=== PATIENT | female | born 1990 | race Caucasian/White ===

== ENCOUNTER 2018-05-21 15:45 | Emergency (ER) | payer SELFPAY ==
[2018-05-21 15:46] VITALS: BP 141/77; PULSE 101; RESP 16; TEMP 36.8; O2SAT 94; BMI 26.6
--- NOTE | 2018-05-21 16:00 | RAD_ITS ---
STUDY: X-RAY CHEST REASON FOR EXAM: Female, 27 years old. Fever and vomiting. TECHNIQUE: PA and lateral chest. COMPARISON: 09/10/2012. FINDINGS: The lungs are clear and expanded. There is no demonstrated pleural abnormality. Normal size heart. Normal mediastinum and catarino. Normal visualized pulmonary arteries. Normal visualized aortic arch and descending thoracic aorta. Normal visualized thoracic spine. Old right rib fractures. There is no demonstrated abnormality of the visualized soft tissue structures of the upper abdomen. RAD/Chest PA and Lateral IMPRESSION: No acute process. Electronically Signed: Candy Navarro MD at 16:34 EST Tel , Service support ,
[2018-05-21 17:32] LABS: Mucous, Urine 0 SEEN /hpf (<or=2+)
[2018-05-21 17:35] LABS: Color, Urine Yellow (Yellow); Glucose, Dipstick Normal (Normal); Ketone-Dipstick 5 mg/dl (Negative); Leukocyte Esterase-Dipstick 500 /ul (Negative); Nitrite-Dipstick Positive (Negative); Occult Blood-Urine 150 /ul (Negative); Protein-Dipstick 30 mg/dl (Negative); Urine Bilirubin Dipstick Negative (Negative); Urine Clarity Cloudy (Clear); Urine Urobilinogen 1 mg/dl (Normal)
[2018-05-21 17:55] LABS: Bacteria 2+ /hpf (None Seen); Red Blood Cells-Urine 0-5 SEEN /hpf (0-5); Squamous Epithelial Cells - UA 0-5 SEEN /hpf (5-10); White Blood Cells >100 SEEN /hpf (0-5)
[2018-05-21 18:24] VITALS: BP 124/77; PULSE 71; RESP 16; O2SAT 98
--- NOTE | 2018-05-21 18:49 | ED.VISSUMM ---
- ER Visit Summary Date of Service: 05/21/18 Chief Complaint: Fever to 102.5. And urine smells History of Present Illness: The patient is a 27 F who presents with frequency, dark urine with odor and temperature documented 102.5 with chills and sweats. She also complains of left flank pain. She does report lower abdominal pain with nausea as well. She denies headache. She denies ocular, visual auditory symptoms. She denies sore throat or change in voice. She denies cough, shortness of breath or difficulty breathing. Denies chest pain. Please read written note for complete detail. Physical Examination: Vital signs are remarkable for a heart rate of 101 and blood pressure 141/77. . HEENT exam is unremarkable. Heart is regular without murmur, gallop or rub. S1 and S2 are normal. Lungs are clear to auscultation with good movement of air bilaterally. Abdomen is remarkable suprapubic discomfort. Bowel sounds are present normal. There is no guarding or rebound tenderness. There is left CVA tenderness noted. Test Results: Urine is positive for infection. Emergency Department Course and Treatment: We will obtain UA since her symptoms are urologic. If negative will entertain other possibilities. Treatment Plan: Antibiotics for 7 days, ciprofloxacin 500 mg twice daily Disposition: Discharge to home in stable condition Impression: Acute pyelonephritis This note was generated with [employer] dictation software. It may contain incorrect words, spelling, and punctuation that were not noted in review of the chart prior to signing ED Disposition - Plan for ED Patient: Disposition: Home or Assisted Living Chief Complaint: Fever Instructions: ED Kidney Infec Female Prescriptions: Ciprofloxacin [Cipro] 500 mg PO BID #14 tab Referrals: Care Physician,No Primary [Primary Care Provider] - Karin Cabezas [NON-STAFF] - 3-5 Days if not improving
[2018-05-21 19:05] VITALS: BP 111/69; PULSE 85; RESP 18; O2SAT 99
[2018-05-21] MEDS: Ciprofloxacin 250 MG Tablet 500 MG PO (19:05)
--- NOTE | 2018-05-21 19:06 | ED.VISSUMM ---
- ER Visit Summary Date of Service: 05/21/18 Chief Complaint: [] History of Present Illness: The patient is a 27 F [] Physical Examination: [] Test Results: [] Emergency Department Course and Treatment: [] Treatment Plan: [] Disposition: [] Impression: [] This note was generated with [employer] dictation software. It may contain incorrect words, spelling, and punctuation that were not noted in review of the chart prior to signing ED Disposition - Plan for ED Patient: Disposition: Home or Assisted Living Chief Complaint: Fever Instructions: ED Kidney Infec Female Prescriptions: Ondansetron [Zofran Odt] 4 mg PO Q8H PRN PRN #10 tab PRN Reason: Nausea Ciprofloxacin [Cipro] 500 mg PO BID #14 tab Referrals: Karin Cabezas [NON-STAFF] - 3-5 Days if not improving Care Physician,No Primary [Primary Care Provider] -
== END 2018-05-21 19:09 | disposition home or self-care (01) ==
PROVIDERS: Emergency Provider Emergency Medicine
DX: N10 Acute pyelonephritis (principal); Z72.0 Tobacco use
CPT/HCPCS: 71046; 81001; 99283

== ENCOUNTER → 2019-11-21 11:23 | Outpatient (CLI) | payer OTHER, SELFPAY ==
[2015-02-24 10:50] VITALS: BMI 29.8
[2019-11-21 11:28] LABS: Mucous, Urine 0 SEEN /hpf (<or=2+)
[2019-11-21 15:37] LABS: Color, Urine Yellow (Yellow); Glucose, Dipstick Normal (Normal); Ketone-Dipstick Negative (Negative); Leukocyte Esterase-Dipstick 25 /ul (Negative); Nitrite-Dipstick Positive (Negative); Occult Blood-Urine 25 /ul (Negative); Protein-Dipstick Negative (Negative); Urine Bilirubin Dipstick Negative (Negative); Urine Clarity Cloudy (Clear); Urine Urobilinogen Normal (Normal)
[2019-11-21 15:44] LABS: Bacteria 4+ /hpf (None Seen); Squamous Epithelial Cells - UA 0-5 SEEN /hpf (5-10)
[2019-11-21 15:45] LABS: Red Blood Cells-Urine 0-5 SEEN /hpf (0-5); White Blood Cells 10-25 SEEN /hpf (0-5)
[2019-11-21 16:04] LABS: Thyroid Stim Hormone (TSH) 1.71 uIU/mL (0.358-3.74)
== END ==
PROVIDERS: PCP Family Medicine; Referring Provider Family Medicine; Visit Provider Family Medicine
DX: Z00.00 Encounter for general adult medical examination without abnormal findings (principal); R31.9 Hematuria, unspecified; R82.81 Pyuria
CPT/HCPCS: 36415; 81001; 84443; 87086; 87088; 87186

== ENCOUNTER → 2019-12-03 13:31 | Outpatient (CLI) | payer OTHER, SELFPAY ==
--- NOTE | 2019-12-03 13:36 | RAD_ITS ---
STUDY: X-RAY - RIGHT FOOT CLINICAL: Female, 29 years old. Pain. TECHNIQUE: 3 view(s) of the foot. COMPARISON: Comparison is made with prior examination dated May 25, 2014. FINDINGS: There is a small plantar calcaneal spur. Normal visualized subtalar, talonavicular, calcaneocuboid, tarsal and tarsometatarsal articulations. Normal metatarsi. Normal metatarsophalangeal joint of the great toe. Normal tibial and fibular sesamoid bones. Normal interphalangeal joint of the great toe. Normal phalanges of the great toe. Normal second through fifth metatarsophalangeal joints. Normal interphalangeal joints and phalanges of the lesser toes. The soft tissue structures are unremarkable. RAD/Foot min 3 Views IMPRESSION: Small plantar spur. Electronically Signed: Sandro De Luna, at 15:38 EDT , Service support ,
== END ==
PROVIDERS: PCP Family Medicine; Referring Provider Family Medicine; Visit Provider Family Medicine
DX: M77.31 Calcaneal spur, right foot (principal); G89.29 Other chronic pain
CPT/HCPCS: 73630

== ENCOUNTER → 2019-12-26 13:20 | Outpatient (CLI) | payer OTHER, SELFPAY ==
[2019-12-26 15:18] LABS: Progesterone Level 0.46 ng/mL (See Comment)
[2019-12-26 15:23] LABS: Prolactin 9.1 ng/mL; Thyroid Stim Hormone (TSH) 0.92 uIU/mL (0.358-3.74)
[2019-12-26 17:35] LABS: Chlamydia Trachomatis by PCR Negative (Negative); Neisserai gonorrhoeae by PCR Negative (Negative); Probe Check PASS; Sample Adequacy Control PASS; Specimen Processing Control PASS
[2020-01-03 05:44] LABS: HPV APTIMA, High Risk Negative (Negative); HPV Reflexed? NOT INDICATED
== END ==
PROVIDERS: PCP Family Medicine; Visit Provider Obstetrics & Gynecology
DX: Z12.4 Encounter for screening for malignant neoplasm of cervix (principal); Z11.3 Encounter for screening for infections with a predominantly sexual mode of transmission; N94.6 Dysmenorrhea, unspecified; N92.6 Irregular menstruation, unspecified
CPT/HCPCS: 36415; 84144; 84146; 84443; 87491; 87591; 88175; G0145

== ENCOUNTER 2020-02-06 20:24 | Emergency (ER) | payer OTHER, SELFPAY ==
[2020-02-06 20:26] VITALS: BP 135/97; PULSE 93; PULSE 97; RESP 16; RESP 17; TEMP 36.6; O2SAT 98; BMI 28.1
--- NOTE | 2020-02-06 21:43 | ED.DCSUM_ITS ---
History of Present Illness Chief Complaint: Laceration Informant: Patient Onset: Today Current Severity: Mild Maximum Severity: Mild Narrative: Patient presents with scalp laceration. 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 When she stood up suddenly she struck her head against the corner of a cabinet. She has a 2 cm laceration over the frontal scalp. She does report tetanus is up-to-date. She denies headache or neck pain. Past Medical History - Allergies and Home Meds Allergies/Adverse Reactions: Allergies No Known Allergies Allergy (Verified 02/06/20 20:24) Primary Care Physician: Shahriar Green MD [Primary Care Provider] - Prior records reviewed: Yes Past Medical History: None Smoking Status: Never smoker Review of Systems General: Denies: Chills, Fever Eyes: Denies: Visual changes - bilaterally ENT: Denies: Bilateral ear pain Cardiovascular: Denies: Chest pain Respiratory: Denies: Dyspnea, Cough Gastrointestinal: Denies: Abdominal pain, Nausea, Vomiting, Diarrhea Musculoskeletal: Denies: Extremity Pain Skin: Reports: Wounds Neurological: Denies: Headache Hematologic: Denies: Easy bruising, Easy bleeding Physical Exam Vital Signs/Narrative: Vital Signs Temp Pulse Resp BP Pulse Ox 02/06/20 20:26 97.8 F 97 16 135/97 H 98 Inital Vital Signs reviewed: Yes General: Well nourished, Well developed Head: - - 2 cm linear laceration frontal scalp. ENT: Moist mucous membranes Neck: Supple, - - No C-spine tenderness. Cardiovascular: Regular rate, Regular rhythm Respiratory: No distress Skin: - - Laceration as above Neurological: Alert, Oriented x3 Psychological: Normal affect Diagnostic/Tx/Re-eval - Medical Decision Making 2 cc 1% lidocaine are used locally for anesthesia. Wound is cleansed and closed with 2 simple interrupted sutures of 4-0 nylon. Patient will follow-up with [facility] or employee health. Procedures - Lacerations No standard instances Length: 0.79 in Laceration repair: Lidocaine, Local Number of Sutures/[place]: 2 Suture Information: Ethilon, Simple, 4-0 ED Disposition - Plan for ED Patient: Disposition: Home or Assisted Living Diagnosis: Scalp laceration Instructions: ED Laceration Scalp Sutures or [place] Referrals: Corporate,[facility] [GROUP OF PHYSICIANS] - 5 Days for suture removal
[2020-02-06 21:53] VITALS: BP 133/78; PULSE 88; RESP 16; O2SAT 99
== END 2020-02-06 21:56 | disposition home or self-care (01) ==
PROVIDERS: Emergency Provider Emergency Medicine; PCP Family Medicine
DX: S01.01XA Laceration without foreign body of scalp, initial encounter (principal); W22.8XXA Striking against or struck by other objects, initial encounter
CPT/HCPCS: 12001; 99283

== ENCOUNTER 2020-09-04 12:46 | Emergency (ER) | payer OTHER, SELFPAY ==
[2020-09-04 12:47] VITALS: BP 133/93; PULSE 84; RESP 17; TEMP 34.9; O2SAT 98; BMI 28.1
--- NOTE | 2020-09-04 13:50 | ED.VIS.GEN ---
History of Present Illness Chief Complaint: Complaint Informant: Patient Onset: Days Context: Gradual Onset Timing: Continuous Current Severity: Moderate Maximum Severity: Moderate Narrative: The patient is a 29-year-old female who is otherwise healthy the presents to the emergency department with dysuria. Patient states that going on for about 2 or 3 days. She states that she had low-grade fevers. She is had increasing urinary frequency and urgency. She states that she is had a lot of cramping in her pelvis. She does have history of prior urinary tract infection and states this feels similar. She is otherwise been in her normal state of health. Prior similar symptoms: Yes Recent Illness/Hospitalization: No Past Medical History - Allergies and Home Meds Allergies/Adverse Reactions: Allergies No Known Allergies Allergy (Verified 09/04/20 12:49) Primary Care Physician: Shahriar Green MD [Primary Care Provider] - Prior records reviewed: Yes Past Medical History: None Surgical History: noncontributory Smoking Status: Never smoker Review of Systems General: Denies: Chills, Fever, Sweats Eyes: Denies: Visual changes - bilaterally, Diplopia ENT: Denies: Rhinorrhea, Sore throat Cardiovascular: Denies: Chest pain, Palpitations Respiratory: Denies: Dyspnea, Cough, Dyspnea on exertion Gastrointestinal: Denies: Abdominal pain, Nausea, Vomiting, Diarrhea, Melena, Hematochezia Genitourinary: Reports: Dysuria, Frequency. Denies: Hematuria Musculoskeletal: Denies: Back pain, Extremity Pain Skin: Denies: Rash, Wounds Neurological: Denies: Headache, Weakness, Numbness Physical Exam Vital Signs/Narrative: Vital Signs Temp Pulse Resp BP Pulse Ox 09/04/20 12:47 94.8 F L 84 17 133/93 H 98 Inital Vital Signs reviewed: Yes General: Well nourished, Well developed, No Acute Distress Head: Normocephalic, Atraumatic Eyes: Perrl, EOMI ENT: Moist mucous membranes, No rhinorrhea Neck: Supple, Nontender Cardiovascular: Regular rate, Regular rhythm, No murmurs Respiratory: No distress, CTA bilaterally, Chest nontender Abdomen: Soft, Nondistended, Normal bowel sounds, Tender. Negative for: Guarding, Rebound tenderness Back: Nontender, Normal Inspection Extremities: Nontender, No edema Skin: Normal color, No rash Neurological: Alert, Oriented x3, Cranial nerves II-XII grossly intact, Normal Strength, Normal Sensation Psychological: Normal affect, Normal Mood Diagnostic/Tx/Re-eval Abnormal Lab Results 09/04/20 12:45 Urine Color Yellow Urine Clarity Sl. Cloudy Urine pH 7.0 Ur Specific [place] 1.010 Urine Protein Negative Urine Glucose (UA) Normal Urine Ketones Negative Urine Occult Blood 10 H Urine Nitrite Negative Urine Bilirubin Negative Urine Urobilinogen Normal Ur Leukocyte Esterase 25 H Urine RBC 0-5 SEEN Urine WBC 5-10 SEEN Ur Squamous Epith Cells 0-5 SEEN Urine Bacteria RARE Urine Mucus RARE Urine Test Negative - Medical Decision Making The patient presents with urinary frequency and urgency. UA was obtained. There is white cells and some trace bacteria. Culture was added. Patient is nonfebrile. She has had no other systemic symptoms. I am going to add culture to the urine. The patient be treated with Bactrim. She is comfortable with this plan of care. Thank you impression 1. Acute cystitis ED Disposition - Plan for ED Patient: Instructions: ED Bladder Infection, Female (Adult) Prescriptions: Smz/Tmp Ds [Bactrim Ds] 1 tablet PO BID #14 tab Prescription Printed Phenazopyridine HCl [Pyridium] 200 mg PO BID PRN PRN #10 tablet PRN Reason: Pain Prescription Printed Referrals: Shahriar Green MD [Primary Care Provider] -
[2020-09-04 13:56] LABS: Color, Urine Yellow (Yellow); Glucose, Dipstick Normal (Normal); Ketone-Dipstick Negative (Negative); Leukocyte Esterase-Dipstick 25 /ul (Negative); Nitrite-Dipstick Negative (Negative); Occult Blood-Urine 10 /ul (Negative); Protein-Dipstick Negative (Negative); Urine Bilirubin Dipstick Negative (Negative); Urine Clarity Sl. Cloudy (Clear); Urine Urobilinogen Normal (Normal)
[2020-09-04 14:02] LABS: Internal QC Validated? YES +Cl - CLEAR BKGD; Pregnancy, Urine Negative Negative
[2020-09-04 14:05] LABS: Bacteria RARE /hpf (None Seen); Mucous, Urine RARE /hpf (<or=2+); Red Blood Cells-Urine 0-5 SEEN /hpf (0-5); Squamous Epithelial Cells - UA 0-5 SEEN /hpf (5-10); White Blood Cells 5-10 SEEN /hpf (0-5)
== END 2020-09-04 14:15 | disposition home or self-care (01) ==
PROVIDERS: Emergency Provider Emergency Medicine; PCP Family Medicine
DX: N30.00 Acute cystitis without hematuria (principal)
CPT/HCPCS: 81001; 81025; 87086; 87088; 87186; 99282

== ENCOUNTER 2021-07-13 09:49 | Outpatient (CLI) | payer OTHER, SELFPAY ==
[2021-07-13 12:18] LABS: Absolute Lymphocyte Count 2.34 X10^3/uL (0.83-4.51); Absolute Neutrophil Count 4.3 X10^3/uL (2.0-7.7); Basophil# 0.04 X10^3/uL; Basophil% 0.5 % (0-1); Eosinophil# 0.24 X10^3/uL; Eosinophils% 3.2 % (0-5); Hematocrit 40.9 % (37-47); Hemoglobin 13.4 g/dL (12.0-15.0); Lymphocyte # 2.34 X10^3/ul (0.83-4.51); Mean Corp Hgb Conc 32.8 g/dL (32-36); Mean Corpuscular Hgb 31.1 pg (27.0-32.0); Mean Corpuscular Volume 94.9 fL (81-99); Mean Platelet Vol. 10.2 fl (6.2-12.0); Monocyte% 7.9 % (0-10); NRBC Flagged by Analyzer 0 % (0-5); Neutrophil % 56.9 % (47-70); Platelet Count 278 K/mm3 (150-450); RBC Distribution Width CV 12.5 % (11.6-14.6); RBC Distribution Width SD 43.6 fl (35.1-43.9); Red Blood Count 4.31 M/mm3 (4.2-5.4); White Blood Count 7.6 K/mm3 (4.4-11.0)
[2021-07-13 13:03] LABS: AST(SGOT) 19 U/L (15-37); Alanine Aminotransfer ALT/SGPT 26 U/L (13-56); Albumin, Serum 3.6 g/dL (3.2-5.0); Alkaline Phosphatase 90 U/L (45-117); Anion Gap 6 (5-15); BUN 11 mg/dL (7-18); BUN/Creat Ratio 18.5 RATIO (10-20); Calcium,Total 8.6 mg/dL (8.5-10.1); Chloride 107 mmol/L (98-107); Creatinine, Serum 0.59 mg/dL (0.55-1.02); EST Glomerular Filtration Rate 125 mL/min (>60); Est Glom Filt Rate - Afr Amer 151 mL/min (>60); Globulin 3.7 g/dL (2.2-4.2); Glucose 81 mg/dL (74-106); Potassium 3.9 mmol/L (3.5-5.1); Protein, Total 7.3 g/dL (6.4-8.2); Sodium Level 139 mmol/L (136-145); T4 Free Direct 0.87 ng/dL (0.76-1.46); Thyroid Stim Hormone (TSH) 1.03 uIU/mL (0.358-3.74)
== END 2021-07-13 23:59 | disposition short-term general hospital (02) ==
LOC: BIMLAB 09:51
PROVIDERS: PCP Internal Medicine; Visit Provider Internal Medicine
DX: F41.0 Panic disorder [episodic paroxysmal anxiety] (principal); F41.1 Generalized anxiety disorder
CPT/HCPCS: 36415; 80053; 84439; 84443; 85025

== ENCOUNTER 2021-07-17 08:55 | Emergency (ER) | payer OTHER, SELFPAY ==
--- NOTE | 2021-07-17 09:45 | EKG12_ITS ---
Test Reason : CP Blood Pressure : / mmHG Vent. Rate : 062 BPM Atrial Rate : 062 BPM P-R Int : 160 ms QRS Dur : 090 ms QT Int : 398 ms P-R-T Axes : 082 060 024 degrees QTc Int : 403 ms Normal sinus rhythm Normal ECG Confirmed by UAMIR PACE, KRISTIE ([id number]), editor managing director VIVI RIZVI ([id number]) on 07/19/2021 10:17:31 AM Referred By: MOON Confirmed By:KRISTIE BLOCK MD
--- NOTE | 2021-07-17 09:57 | RAD_ITS ---
STUDY: X-RAY CHEST REASON FOR EXAM: Female, 30 years old. CHEST PAIN TECHNIQUE: Single AP portable view of the chest. COMPARISON: 05/21/2018. FINDINGS: The lungs are clear and expanded. There is no demonstrated pleural abnormality. Normal size heart. Normal mediastinum and catarino. Normal visualized pulmonary arteries. Normal visualized aortic arch and descending thoracic aorta. Normal visualized thoracic spine. Old fracture of the posterior right seventh rib. There is no demonstrated abnormality of the visualized soft tissue structures of the upper abdomen. RAD/Chest 1 View (Portable) IMPRESSION: No active pulmonary disease. Electronically Signed: Tino Quintero, at 10:40 EST ,
--- NOTE | 2021-07-17 12:26 | EDS_ITS ---
DATE OF SERVICE 07/17/21 CHIEF COMPLAINT: Anxiety. HISTORY OF PRESENT ILLNESS: The patient is a 30-year-old female with a recent history of anxiety. She was started on Zoloft within the last several days. Today, she has had two episodes of lightheadedness, near syncope and heart racing, each lasting approximately 10 minutes. She states that in about 10 minutes symptoms seemed to resolve. Symptoms have been ongoing similar to this for several months. PHYSICAL EXAMINATION: GENERAL: The patient is sitting upright in no acute distress. VITAL SIGNS: Blood pressure 158/107, temperature 969, heart rate 88, respiratory rate 16, pulse ox 100% on room air. HEENT: Head and neck examination is unremarkable. LUNGS: Clear. HEART: Regular rate and rhythm. ABDOMEN: Soft and nontender. NEUROLOGIC: The patient is alert and oriented. Normal strength and sensation throughout. She does appear somewhat anxious. DIAGNOSTIC DATA: EKG is sinus at 62 with no acute ischemia. Portable chest x- ray is normal. CBC and chemistry studies are unremarkable. Troponin is negative. test is negative. TSH is normal. EMERGENCY DEPARTMENT COURSE AND MEDICAL DECISION MAKING: The patient was given 0.5 mg IV Ativan. She states that she has had no further episodes while here and feels very calm at this time. IMPRESSION: Anxiety. PLAN: I will write her for a short course of Ativan for home until her Zoloft can build up and take effect. DISPOSITION: Discharged.
[2021-07-17 21:29] LABS: Absolute Lymphocyte Count 2.21 X10^3/uL (0.83-4.51); Absolute Neutrophil Count 3.7 X10^3/uL (2.0-7.7); Basophil# 0.03 X10^3/uL; Basophil% 0.4 % (0-1); Eosinophil# 0.27 X10^3/uL; Hematocrit 41.6 % (37-47); Lymphocyte # 2.21 X10^3/ul (0.83-4.51); Lymphocyte % 32.5 % (19-41); Mean Corp Hgb Conc 33.7 g/dL (32-36); Mean Corpuscular Hgb 31.5 pg (27.0-32.0); Mean Corpuscular Volume 93.7 fL (81-99); Mean Platelet Vol. 9.8 fl (6.2-12.0); Monocyte# 0.53 X10^3/uL; Monocyte% 7.8 % (0-10); NRBC Flagged by Analyzer 0 % (0-5); Neutrophil # 3.74 X10^3/uL (2.7-7.7); Neutrophil % 55.2 % (47-70); Platelet Count 262 K/mm3 (150-450); RBC Distribution Width CV 12.3 % (11.6-14.6); Red Blood Count 4.44 M/mm3 (4.2-5.4); White Blood Count 6.8 K/mm3 (4.4-11.0)
[2021-07-18 00:54] LABS: Internal QC Validated? YES +Cl - CLEAR BKGD; Pregnancy, Serum, hCG Quali. NEGATIVE Negative
[2021-07-18 00:56] LABS: Anion Gap 6 (5-15); BUN 10 mg/dL (7-18); BUN/Creat Ratio 13.4 RATIO (10-20); Calcium,Total 8.9 mg/dL (8.5-10.1); Chloride 108 mmol/L (98-107); Creatinine, Serum 0.75 mg/dL (0.55-1.02); EST Glomerular Filtration Rate 96 mL/min (>60); Est Glom Filt Rate - Afr Amer 116 mL/min (>60); Glucose 82 mg/dL (74-106); Potassium 3.7 mmol/L (3.5-5.1); Sodium Level 138 mmol/L (136-145); Thyroid Stim Hormone (TSH) 0.79 uIU/mL (0.358-3.74); Troponin-I HS 4 pg/mL (3.0-54.0)
== END 2021-07-17 12:38 | disposition home or self-care (01) ==
PROVIDERS: Emergency Provider Emergency Medicine; PCP Internal Medicine; Visit Provider Emergency Medicine
DX: F41.9 Anxiety disorder, unspecified (principal)
CPT/HCPCS: 71045; 80048; 84443; 84484; 84703; 85025; 93005; 96374; 99284